=== PATIENT | male | born 1990 | race Two or more races ===

== ENCOUNTER 2022-07-15 23:13 | Emergency (ER) | payer BC, OTHER ==
[~2022-07-15] VITALS: Ht 182.9 cm; Wt 90.9 kg
[2022-07-15 23:15] VITALS: BP 121/62
== END 2022-07-16 03:50 | disposition home or self-care (01) ==
LOC: ER 23:13
DX: K22.2 Esophageal obstruction (principal); I85.00 Esophageal varices without bleeding; K56.699 Other intestinal obstruction unspecified as to partial versus complete obstruction